=== PATIENT | male | born 1960 | race Caucasian/White ===

== ENCOUNTER → 2016-12-31 | Outpatient (CLI) | payer OTHER | LOC: BHSO 16:13 | DX: F41.1 Generalized anxiety disorder (principal) ==

== ENCOUNTER → 2017-02-12 | Outpatient (CLI) | payer OTHER | LOC: BHSO 15:35 | DX: F33.1 Major depressive disorder, recurrent, moderate (principal) ==

== ENCOUNTER → 2017-04-02 | Outpatient (CLI) | payer OTHER | LOC: BHSO 15:48 | DX: F33.1 Major depressive disorder, recurrent, moderate (principal) ==